=== PATIENT | female | born 1940 | race Caucasian/White ===

== ENCOUNTER 2018-05-11 06:09 | Observation (INO) | payer MEDICARE, OTHER ==
[2018-05-11] MEDS ORDERED: Sodium Chloride 0.9% 500 ML IV ONE (06:17)
--- NOTE | 2018-05-11 06:18 | EDM.PDOC ---
ED HPI GENERAL MEDICAL PROBLEM - General Chief Complaint: Cardiovascular Problem Stated Complaint: [facility] Time Seen by Provider: 05/11/18 06:13 Source of Information: Reports: Patient, EMS History Limitations: Reports: No Limitations - History of Present Illness INITIAL COMMENTS - FREE TEXT/NARRATIVE: Patient has a history of paroxysmal atrial fibrillation and was out at the [facility] last night and woke this morning to go to the restroom and had A FEELING OF A "FREEZING FEELING TO HER CHEST AND UPPER EXTREMITIES. THIS WAS ASSOCIATED WITH THE ONSET OF PALPITATIONS, MILD SHORTNESS OF BREATH AND FEELING GENERALLY WEAK. NO NAUSEA OR VOMITING. NO SYNCOPE NO VOMITING OR DIARRHEA. PATIENT WAS FEELING WELL YESTERDAY. SHE DOES TAKES A RALE TOE DAILY FOR ATRIAL FIBRILLATION. SHE NORMALLY CAN TAKE HER DILTIAZEM AND THIS WILL CORRECT THE RAPID HEART RATE HOWEVER SHE TOOK THAT THIS MORNING AT ABOUT 5:00 AND HER HEART RATE CONTINUED TO BE IRREGULAR AND THEREFORE CALLED 911 AND BROUGHT IN BY AMBULANCE. Chest Pain Score (Numeric/FACES): 5 - Related Data Allergies Allergy/AdvReac Type Severity Reaction Status Date / Time adhesive Allergy Blisters Verified 05/11/18 13:01 MDT candesartan [From Atacand] Allergy Airway Verified 05/11/18 13:01 MDT Tightness cefaclor [From Ceclor] Allergy Hives Verified 05/11/18 13:01 MDT ceftriaxone [From Rocephin] Allergy Hives Verified 05/11/18 13:01 MDT Cephalosporins Allergy Hives Verified 05/11/18 13:01 MDT ciprofloxacin [From Cipro] Allergy Hives Verified 05/11/18 08:35 MDT labetalol Allergy Hives Verified 05/11/18 13:02 MDT levofloxacin [From Levaquin] Allergy Hives Verified 05/11/18 13:01 MDT morphine Allergy Itching Verified 05/11/18 13:01 MDT nitrofurantoin Allergy Joint Pain Verified 05/11/18 13:04 MDT [From Macrodantin] Penicillins Allergy Facial Verified 05/11/18 13:01 MDT Swelling [id number] Reductase Allergy Muscle Verified 05/11/18 13:01 MDT Inhibitor Weakness Sulfa (Sulfonamide Allergy Hives Verified 05/11/18 08:35 MDT Antibiotics) tramadol Allergy Nausea Verified 05/11/18 14:06 MDT amlodipine [From Norvasc] AdvReac Wheezing Verified 05/11/18 14:07 MDT atenolol AdvReac Shortness Verified 05/11/18 14:06 MDT of Breath etodolac AdvReac Nausea Verified 05/11/18 14:06 MDT metoprolol AdvReac Nausea Verified 05/11/18 14:06 MDT propoxyphene [From Darvon] AdvReac Stomach Verified 05/11/18 14:06 MDT Upset Home Meds: Home Meds Cetirizine [ZyrTEC] 10 mg PO DAILY 05/11/18 [History] Citalopram Hydrobromide [Celexa] 10 mg PO BEDTIME 05/11/18 [History] Dicyclomine [Bentyl] 20 mg PO Q6HR PRN 05/11/18 [History] Diltiazem HCl [Diltiazem 24Hr ER] 360 mg PO BEDTIME 05/11/18 [History] Diltiazem [Cardizem CD] 120 mg PO ASDIRECTED PRN 05/11/18 [History] Doxazosin Mesylate 4 mg PO BEDTIME 05/11/18 [History] Furosemide [Lasix] 20 mg PO DAILY 05/11/18 [History] Gabapentin [Neurontin] 100 mg PO TID 05/11/18 [History] Gabapentin [Neurontin] 300 mg PO DAILY 05/11/18 [History] Gabapentin [Neurontin] 900 mg PO BEDTIME 05/11/18 [History] Mirabegron [Myrbetriq] 50 mg PO ACDINNER 05/11/18 [History] Olmesartan Medoxomil [Benicar] 40 mg PO ACLUNCH 05/11/18 [History] Pentosan Polysulfate Sodium [Elmiron] 200 mg PO BEDTIME 05/11/18 [History] Potassium Chloride 20 mg PO BID 05/11/18 [History] Propafenone [Rythmol] 150 mg PO BID 05/11/18 [History] Rivaroxaban [Xarelto] 20 mg PO BEDTIME 05/11/18 [History] Trimethoprim 100 mg PO BID PRN 05/11/18 [History] cloNIDine HCl [Catapres] 0.1 mg PO QID 05/11/18 [History] diphenhydrAMINE [Benadryl] 25 mg PO QPM PRN 05/11/18 [History] ED ROS GENERAL - Review of Systems Review Of Systems: See Below Constitutional: Reports: Weakness. Denies: Fever, Chills, Diaphoresis Cardiovascular: Reports: Chest Pain, Blood Pressure Problem, Lightheadedness, Palpitations. Denies: Dyspnea on Exertion, Orthopnea, PND, Syncope GI/Abdominal: Denies: Abdominal Pain, Diarrhea, Nausea, Vomiting : Denies: Dysuria Musculoskeletal: Reports: Arm Pain Skin: Denies: Rash Neurological: Denies: Confusion, Dizziness, Headache, Syncope ED EXAM, GENERAL - Physical Exam Exam: See Below Exam Limited By: No Limitations General Appearance: Alert, WD/WN, Mild Distress Eye Exam: Bilateral Eye: PERRL Throat/Mouth: Normal Inspection, Normal Oropharynx Head: Atraumatic Neck: Normal Inspection, Supple Respiratory/Chest: Lungs Clear, Normal Breath Sounds, No Accessory Muscle Use Cardiovascular: Normal Peripheral Pulses, Other (Irregular regular rhythm, fast , mild left lower extremity swelling.) GI/Abdominal: Normal Bowel Sounds, Soft, Non-Tender Extremities: Normal Inspection Neurological: Alert, Oriented Psychiatric: Normal Affect, Normal Mood Skin Exam: Warm, Dry EKG INTERPRETATION EKG Date: 05/11/18 Time: 06:28 Rhythm: A-Fib Course - Vital Signs Text/Narrative:: Patient is in rapid atrial fibrillation. History of the same in the past. No precursors other than being out of town. She did take her oral diltiazem prior to coming here this morning about 5:00 this morning. We'll treat her with IV diltiazem, EKG, labs, electrolytes, chest x-ray. Last Recorded V/S: Last Vital Signs Temp 99.4 F 05/11/18 16:00 MDT Pulse 69 05/11/18 16:00 MDT Resp 18 05/11/18 16:00 MDT BP 148/68 H 05/11/18 17:12 MDT Pulse Ox 96 05/11/18 16:00 MDT - Orders/Labs/Meds Orders: Active Orders 24 hr Category Date Time Status Patient Status [ADT] Stat ADT 05/11/18 06:38 Active Diltiazem 125 mg Med 05/11/18 06:45 Active Sodium Chloride 0.9% [Normal Saline] 100 ml IV TITRATE Medication Orders Acetaminophen (Tylenol) 650 mg PO Q4H PRN PRN Reason: Pain (Mild 1-3)/fever Hydrocodone Bitart/Acetaminophen ([place] 325-5 Mg) 1 tab PO Q4H PRN PRN Reason: Pain (moderate 4-6) Last Admin: 05/11/18 10:50 MDT Dose: 1 tab Albuterol/Ipratropium (Duoneb 3.0-0.5 Mg/3 Ml) 3 ml NEB Q4H PRN PRN Reason: Shortness Of Breath/wheezing Bisacodyl (Dulcolax) 5 mg PO DAILY PRN PRN Reason: Constipation Citalopram Hydrobromide (Celexa) 10 mg PO BEDTIME [facility] Clonidine HCl (Catapres) 0.1 mg PO QID [facility] Last Admin: 05/11/18 17:12 MDT Dose: 0.1 mg Admin: 05/11/18 13:21 MDT Dose: 0.1 mg Dicyclomine HCl (Bentyl) 20 mg PO Q6H PRN PRN Reason: Cramping Diltiazem HCl (Cardizem Cd) 360 mg PO BEDTIME [facility] Diphenhydramine HCl (Benadryl) 25 mg PO QPM PRN PRN Reason: Itching Docusate Sodium (Colace) 100 mg PO BID PRN PRN Reason: Constipation Doxazosin Mesylate (Cardura) 4 mg PO BEDTIME [facility] Furosemide (Lasix) 40 mg PO DAILY [facility] Last Admin: 05/11/18 13:21 MDT Dose: 40 mg Gabapentin (Neurontin) 600 mg PO BEDTIME [facility] Gabapentin (Neurontin) 300 mg PO DAILY [facility] Last Admin: 05/11/18 13:21 MDT Dose: 300 mg Gabapentin (Neurontin) 100 mg PO TID [facility] Last Admin: 05/11/18 15:14 MDT Dose: 100 mg Hydralazine HCl (Apresoline) 20 mg IVPUSH Q4H PRN PRN Reason: Hypertension Hydromorphone HCl (Dilaudid) 0.25 mg IVPUSH Q2H PRN PRN Reason: Pain (severe 7-10) Diltiazem HCl 125 mg/ Sodium (Chloride) 125 mls @ 5 mls/hr IV TITRATE [facility]; Protocol Last Admin: 05/11/18 06:44 MDT Dose: 5 mg/hr, 5 mls/hr Promethazine HCl 6.25 mg/ (Sodium Chloride) 50.25 mls @ 100 mls/hr IV Q6H PRN PRN Reason: Nausea/Vomiting Loratadine (Claritin) 10 mg PO DAILY [facility] Lorazepam (Ativan) 0.25 mg IV Q6H PRN PRN Reason: Anxiety Metoprolol Tartrate (Lopressor) 5 mg IVPUSH Q4H PRN PRN Reason: Tachycardia Ondansetron HCl (Zofran) 4 mg IV Q6H PRN PRN Reason: Nausea/Vomiting Mirabegron [ (Myrbetriq] 50 Mg) 0 each PO ACDINNER [facility] Last Admin: 05/11/18 15:09 MDT Dose: Pentosan Polysulfate Sodium [Elmiron] 200 Mg 0 each PO BEDTIME [facility] Polyethylene Glycol (Miralax) 17 gm PO DAILY PRN PRN Reason: Constipation Potassium Chloride (Klor-Con M20) 20 meq PO BID [facility] Last Admin: 05/11/18 13:30 MDT Dose: 20 meq Propafenone HCl (Rythmol) 150 mg PO BID [facility] Rivaroxaban (Xarelto) 20 mg PO WITHDINNER [facility] Last Admin: 05/11/18 17:12 MDT Dose: 20 mg Senna/Docusate Sodium (Senna Plus) 1 tab PO BID PRN PRN Reason: Constipation Zolpidem Tartrate (Ambien) 5 mg PO BEDTIME PRN PRN Reason: Sleep Labs: Laboratory Tests 05/11/18 05/11/18 05/11/18 Range/Units 06:20 MDT 06:20 MDT 06:20 MDT WBC 4.50 (3.98-10.04) K/mm3 RBC 4.21 (3.98-5.22) M/mm3 Hgb 12.7 (11.2-15.7) gm/L Hct 40.0 (34.1-44.9) % MCV 95.0 H (79.4-94.8) fl MCH 30.2 (25.6-32.2) pg MCHC 31.8 L (32.2-35.5) g/dl RDW Std Deviation 48.7 H (36.4-46.3) fL Plt Count 229 (182-369) K/mm3 MPV 10.3 (9.4-12.3) fl Neut % (Auto) 41.8 (34.0-71.1) % Lymph % (Auto) 42.2 (19.3-51.7) % [place] % (Auto) 10.7 (4.7-12.5) % Eos % (Auto) 4.4 (0.7-5.8) Baso % (Auto) 0.9 (0.1-1.2) % Neut # (Auto) 1.88 (1.56-6.13) K/mm3 Lymph # (Auto) 1.90 (1.18-3.74) K/mm3 [place] # (Auto) 0.48 H (0.24-0.36) K/mm3 Eos # (Auto) 0.20 (0.04-0.36) K/mm3 Baso # (Auto) 0.04 (0.01-0.08) K/mm3 PT 12.4 H (9.5-12.1) SECONDS INR 1.14 Sodium 143 (136-145) mEq/L Potassium 3.4 L (3.5-5.1) mEq/L Chloride 104 (98-107) mEq/L Carbon Dioxide 27 (21-32) mEq/L Anion Gap 15.4 H (5-15) BUN 16 (7-18) mg/dL Creatinine 0.9 (0.55-1.02) mg/dL Est Cr Clr Drug Dosing 49.78 mL/min Estimated GFR (MDRD) > 60 (>60) mL/min BUN/Creatinine Ratio 17.8 (14-18) Glucose 106 (83-115) mg/dL Calcium 9.0 (8.5-10.1) mg/dL Total Bilirubin 0.3 (0.2-1.0) mg/dL AST 18 (15-37) U/L ALT 29 (14-59) U/L Alkaline Phosphatase 81 (46-116) U/L CK-MB (CK-2) (0-3.6) ng/ml Troponin I < 0.017 (0.00-0.056) ng/mL NT-Pro-B Natriuret Pep (0-450) pg/mL Total Protein 7.5 (6.4-8.2) g/dl Albumin 4.2 (3.4-5.0) g/dl Globulin 3.3 gm/dL Albumin/Globulin Ratio 1.3 (1-2) Free T4 (0.76-1.46) ng/dL TSH 3rd Generation (0.358-3.74) uIU/mL 05/11/18 05/11/18 05/11/18 Range/Units 06:20 MDT 06:20 MDT 06:20 MDT WBC (3.98-10.04) K/mm3 RBC (3.98-5.22) M/mm3 Hgb (11.2-15.7) gm/L Hct (34.1-44.9) % MCV (79.4-94.8) fl MCH (25.6-32.2) pg MCHC (32.2-35.5) g/dl RDW Std Deviation (36.4-46.3) fL Plt Count (182-369) K/mm3 MPV (9.4-12.3) fl Neut % (Auto) (34.0-71.1) % Lymph % (Auto) (19.3-51.7) % [place] % (Auto) (4.7-12.5) % Eos % (Auto) (0.7-5.8) Baso % (Auto) (0.1-1.2) % Neut # (Auto) (1.56-6.13) K/mm3 Lymph # (Auto) (1.18-3.74) K/mm3 [place] # (Auto) (0.24-0.36) K/mm3 Eos # (Auto) (0.04-0.36) K/mm3 Baso # (Auto) (0.01-0.08) K/mm3 PT (9.5-12.1) SECONDS INR Sodium (136-145) mEq/L Potassium (3.5-5.1) mEq/L Chloride (98-107) mEq/L Carbon Dioxide (21-32) mEq/L Anion Gap (5-15) BUN (7-18) mg/dL Creatinine (0.55-1.02) mg/dL Est Cr Clr Drug Dosing mL/min Estimated GFR (MDRD) (>60) mL/min BUN/Creatinine Ratio (14-18) Glucose (83-115) mg/dL Calcium (8.5-10.1) mg/dL Total Bilirubin (0.2-1.0) mg/dL AST (15-37) U/L ALT (14-59) U/L Alkaline Phosphatase (46-116) U/L CK-MB (CK-2) 1.2 (0-3.6) ng/ml Troponin I < 0.017 (0.00-0.056) ng/mL NT-Pro-B Natriuret Pep 156 (0-450) pg/mL Total Protein (6.4-8.2) g/dl Albumin (3.4-5.0) g/dl Globulin gm/dL Albumin/Globulin Ratio (1-2) Free T4 0.91 (0.76-1.46) ng/dL TSH 3rd Generation 1.689 1.688 (0.358-3.74) uIU/mL Meds: Medications Generic Name Dose Route Start Last Admin Trade Name Freq PRN Reason Stop Dose Admin Acetaminophen 650 mg 05/11/18 07:40 MDT Tylenol PO Q4H PRN Pain (Mild 1-3)/fever Hydrocodone Bitart/Acetaminophen 1 tab 05/11/18 07:40 MDT 05/11/18 10:50 MDT [place] 325-5 Mg PO 1 tab Q4H PRN Administration Pain (moderate 4-6) Albuterol/Ipratropium 3 ml 05/11/18 07:40 MDT Duoneb 3.0-0.5 Mg/3 Ml NEB Q4H PRN Shortness Of Breath/wheezing Bisacodyl 5 mg 05/11/18 07:40 MDT Dulcolax PO DAILY PRN Constipation Citalopram Hydrobromide 10 mg 05/11/18 21:00 MDT Celexa PO BEDTIME [facility] Clonidine HCl 0.1 mg 05/11/18 13:00 MDT 05/11/18 17:12 MDT Catapres PO 0.1 mg QID [facility] Administration Dicyclomine HCl 20 mg 05/11/18 13:22 MDT Bentyl PO Q6H PRN Cramping Diltiazem HCl 360 mg 05/11/18 21:00 MDT Cardizem Cd PO BEDTIME [facility] Diphenhydramine HCl 25 mg 05/11/18 13:22 MDT Benadryl PO QPM PRN Itching Docusate Sodium 100 mg 05/11/18 07:40 MDT Colace PO BID PRN Constipation Doxazosin Mesylate 4 mg 05/11/18 21:00 MDT Cardura PO BEDTIME [facility] Furosemide 40 mg 05/11/18 12:15 MDT 05/11/18 13:21 MDT Lasix PO 40 mg DAILY [facility] Administration Gabapentin 600 mg 05/11/18 21:00 MDT Neurontin PO BEDTIME [facility] Gabapentin 300 mg 05/11/18 12:15 MDT 05/11/18 13:21 MDT Neurontin PO 300 mg DAILY [facility] Administration Gabapentin 100 mg 05/11/18 15:00 MDT 05/11/18 15:14 MDT Neurontin PO 100 mg TID [facility] Administration Hydralazine HCl 20 mg 05/11/18 07:40 MDT Apresoline IVPUSH Q4H PRN Hypertension Hydromorphone HCl 0.25 mg 05/11/18 07:40 MDT Dilaudid IVPUSH Q2H PRN Pain (severe 7-10) Diltiazem HCl 125 mg/ Sodium 125 mls @ 5 mls/hr 05/11/18 06:45 MDT 05/11/18 06:44 MDT Chloride IV 5 mg/hr TITRATE [facility] 5 mls/hr Administration Protocol 5 MG/HR Promethazine HCl 6.25 mg/ 50.25 mls @ 100 mls/hr 05/11/18 07:40 MDT Sodium Chloride IV Q6H PRN Nausea/Vomiting Loratadine 10 mg 05/12/18 09:00 MDT Claritin PO DAILY [facility] Lorazepam 0.25 mg 05/11/18 07:40 MDT Ativan IV Q6H PRN Anxiety Metoprolol Tartrate 5 mg 05/11/18 07:40 MDT Lopressor IVPUSH Q4H PRN Tachycardia Ondansetron HCl 4 mg 05/11/18 07:40 MDT Zofran IV Q6H PRN Nausea/Vomiting Mirabegron [ 0 each 05/11/18 16:00 MDT 05/11/18 15:09 MDT Myrbetriq] 50 Mg PO Not Given ACDINNER [facility] Pentosan Polysulfate 0 each 09/04/18 21:00 MDT Sodium [Elmiron] PO 200 Mg BEDTIME [facility] Polyethylene Glycol 17 gm 05/11/18 07:40 MDT Miralax PO DAILY PRN Constipation Potassium Chloride 20 meq 05/11/18 13:30 MDT 05/11/18 13:30 MDT Klor-Con M20 PO 20 meq BID [facility] Administration Propafenone HCl 150 mg 05/11/18 21:00 MDT Rythmol PO BID [facility] Rivaroxaban 20 mg 05/11/18 17:00 MDT 05/11/18 17:12 MDT Xarelto PO 20 mg WITHDINNER [facility] Administration Senna/Docusate Sodium 1 tab 05/11/18 07:40 MDT Senna Plus PO BID PRN Constipation Zolpidem Tartrate 5 mg 05/11/18 21:00 MDT Ambien PO BEDTIME PRN Sleep Discontinued Medications Generic Name Dose Route Start Last Admin Trade Name Freq PRN Reason Stop Dose Admin Diltiazem HCl 20 mg 05/11/18 06:33 MDT 05/11/18 06:44 MDT Cardizem IVPUSH 05/11/18 06:34 MDT 20 mg NOW ONE Administration Sodium Chloride 500 mls @ 500 mls/hr 05/11/18 06:17 MDT 05/11/18 06:44 MDT Normal Saline IV 05/11/18 07:16 MDT 500 mls/hr .BOLUS ONE Administration Losartan Potassium 40 mg 05/11/18 12:30 MDT 05/11/18 13:31 MDT Cozaar PO Not Given ACLUNCH [facility] Losartan Potassium 100 mg 05/11/18 12:58 MDT Cozaar PO ACLUNCH [facility] Pneumococcal Polyvalent Vaccine 0.5 ml 05/11/18 08:45 MDT Pneumovax 23 IM 05/11/18 08:46 MDT .ONCE ONE Potassium Chloride 1 dose 05/11/18 07:45 MDT Pharmacy To Dose - Potassium Replacement .XX ASDIRECTED [facility] Potassium Chloride 40 meq 05/11/18 09:00 MDT 05/11/18 13:31 MDT Klor-Con M20 PO 05/11/18 09:01 MDT Not Given ONETIME ONE Departure - Departure Time of Disposition: 06:40 Disposition: DC/Tfer to [facility] Condition: Good Clinical Impression: Atrial fibrillation with rapid ventricular response - My Orders Last 24 Hours: My Active Orders 05/11/18 06:38 Patient Status [ADT] Stat 05/11/18 06:45 Diltiazem 125 mg Sodium Chloride 0.9% [Normal Saline] 100 ml IV TITRATE - Assessment/Plan Last 24 Hours: My Active Orders 05/11/18 06:38 Patient Status [ADT] Stat 05/11/18 06:45 Diltiazem 125 mg Sodium Chloride 0.9% [Normal Saline] 100 ml IV TITRATE
[2018-05-11] MEDS ORDERED: Diltiazem 50 MG/10 ML SDV IVPUSH ONE (06:33)
[2018-05-11] MEDS ORDERED: Diltiazem 125 MG in Sodium Chloride 0.9% 100 ML IV SCH (06:45)
[2018-05-11] MEDS ORDERED: Bisacodyl 5 MG Tab PO PRN (07:40)
[2018-05-11] MEDS ORDERED: Albuterol/Ipratropium 3.0-0.5 MG/3 ML Neb Soln NEB PRN (07:40)
[2018-05-11] MEDS ORDERED: Acetaminophen/HYDROcodone 325-5 MG Tab PO PRN (07:40)
[2018-05-11] MEDS ORDERED: Polyethylene Glycol 3350 Powder 17 GM Packet PO PRN (07:40)
[2018-05-11] MEDS ORDERED: Docusate Sodium 100 MG Cap PO PRN (07:40)
[2018-05-11] MEDS ORDERED: Ondansetron 4 MG/2 ML SDV IV PRN (07:40)
[2018-05-11] MEDS ORDERED: Metoprolol Tartrate 5 MG/5 ML SDV IVPUSH PRN (07:40)
[2018-05-11] MEDS ORDERED: Promethazine 6.25 MG in Sodium Chloride 0.9% 50 ML IV PRN (07:40)
[2018-05-11] MEDS ORDERED: HYDROmorphone 0.5 MG/0.5 ML Syringe IVPUSH PRN (07:40)
[2018-05-11] MEDS ORDERED: hydrALAZINE 20 MG/ML SDV IVPUSH PRN (07:40)
[2018-05-11] MEDS ORDERED: LORazepam 2 MG/ML SDV IV PRN (07:40)
--- NOTE | 2018-05-11 07:48 | PCM.HP ---
H&P History of Present Illness - General Date of Service: 05/11/18 Admit Problem/Dx: Admission Diagnosis/Problem Admission Diagnosis/Problem Chest pain syndrome Source of Information: Patient, Provider, RN Notes Reviewed History Limitations: Reports: No Limitations - History of Present Illness Initial Comments - Free Text/Narative: This is a 78 yo elderly white female with past medical hx/o PAF on Xarelto, OAB , HTN, HLD, Hx/o SSS S/p Pacemaker Placement, Diverticulosis, IBS, Migraines and Peripheral Neuropathy who comes in with complaints of heart palpitation associated with chest pain, shortness of breath, lightheadedness, and generalized weakness that started this morning. She describes having a " freezing feeling" to her chest and upper extremities. Her last known well was yesterday. She was out at [place] attending a Musical Show. Patient having near syncope or syncopal episode. She denies any recent sickness or some form of systemic infection. Patient carries a hx/o PAF on Xarelto and she takes Cardizem 360 mg po daily for rate control medication. She did however take her medication this AM but her heart palpitation did not improve and so she called for help and was brought in to ED for further evaluation. In ED, she was observed with a heart rate in the 120s-130s. Her initial work up in ED shows a fairly unremarkable CBC. Her coagulation studies are PT of 12.4 and INR of 1.14. Her Chemistry is significant for K of 3.4 and AG of 15.4. Her initial troponin is < 0.017. Her CXR shows no acute abnormal findings pacemaker/a1cd noted on the anterior thorax. Patient received initial treatment in ED before she was sent to the unit for further management. She is being admitted for A-fib with RVR. She full code. Chest Pain Score (Numeric/FACES): 5 - Related Data Allergies/Adverse Reactions: Allergies Allergy/AdvReac Type Severity Reaction Status Date / Time ciprofloxacin [From Cipro] Allergy Hives Verified 05/11/18 06:23 Penicillins Allergy Hives Verified 05/11/18 06:23 Sulfa (Sulfonamide Allergy Hives Verified 05/11/18 06:23 Antibiotics) Home Medications: Home Meds Diltiazem HCl [Diltiazem 24Hr ER] 360 mg PO DAILY 05/11/18 [History] Doxazosin Mesylate 4 mg PO DAILY 05/11/18 [History] Furosemide [Lasix] 40 mg PO DAILY 05/11/18 [History] Gabapentin [Neurontin] 100 mg PO TID 05/11/18 [History] Gabapentin [Neurontin] 300 mg PO DAILY 05/11/18 [History] Gabapentin [Neurontin] 600 mg PO BEDTIME 05/11/18 [History] Mirabegron [Myrbetriq] 50 mg PO DAILY 05/11/18 [History] Olmesartan Medoxomil [Benicar] 40 mg PO DAILY 05/11/18 [History] Pentosan Polysulfate Sodium [Elmiron] 200 mg PO DAILY 05/11/18 [History] Rivaroxaban [Xarelto] 40 mg PO DAILY 05/11/18 [History] cloNIDine HCl [Catapres] 0.1 mg PO QID 05/11/18 [History] Past Medical History Cardiovascular History: Reports: Afib, High Cholesterol, Hypertension, Pacemaker Gastrointestinal History: Reports: Diverticulosis, Irritable Bowel Syndrome Genitourinary History: Reports: Other (See Below) Other Genitourinary History: OVERACTIVE BLADDER Neurological History: Reports: Migraines - Past Surgical History GI Surgical History: Reports: Other (See Below) Other GI Surgeries/Procedures: COLECTOMY Musculoskeletal Surgical History: Reports: Knee Replacement Social & Family History - Family History Family Medical History: Noncontributory - Tobacco Use Smoking Status *Q: Never Smoker - Recreational Drug Use Recreational Drug Use: No H&P Review of Systems - Review of Systems: Review Of Systems: ROS reveals no pertinent complaints other than HPI. Exam - Exam Exam: See Below - Vital Signs Vital Signs: Last Vital Signs Temp 36.8 C 05/11/18 06:27 Pulse 107 H 05/11/18 06:44 Resp 13 05/11/18 06:27 BP 132/85 05/11/18 06:44 Pulse Ox 92 L 05/11/18 06:27 Weight: 77.111 kg - Exam General: Alert, Oriented, Cooperative. No: Mild Distress HEENT: Conjunctiva Clear, EACs Clear, EOMI, Hearing Intact, Mucosa Moist & Plover , Nares Patent, Normal Nasal Septum, Posterior Pharynx Clear, Pupils Equal, Pupils Reactive Neck: Supple, Trachea Midline, +2 Carotid Pulse wo Bruit, Full Range of Motion Lungs: Clear to Auscultation, Normal Respiratory Effort Cardiovascular: Irregular Rhythm, Other GI/Abdominal Exam: Normal Bowel Sounds, Soft, Non-Tender, No Organomegaly, No Distention, No Abnormal Bruit, No Mass (Female) Exam: Deferred Rectal (Female) Exam: Deferred Back Exam: Normal Inspection, Decreased Range of Motion Extremities: Normal Inspection, Normal Range of Motion, Non-Tender, No Pedal Edema, Normal Capillary Refill Peripheral Pulses: 3+: Posterior Tibial (L), Posterior Tibial (R), Dorsalis Pedis (L), Dorsalis Pedis (R) Skin: Warm, Dry, Intact Neuro Extensive - Mental Status: Oriented x3, Normal Cognition, Memory Intact Neuro Extensive - Motor, Sensory, Reflexes: CN II-XII Intact, Normal Gait Psychiatric: Alert, Normal Affect, Normal Mood - Patient Data Lab Results Last 24 hrs: Laboratory Results - last 24 hr 05/11/18 05/11/18 05/11/18 Range/Units 06:20 06:20 06:20 WBC 4.50 (3.98-10.04) K/mm3 RBC 4.21 (3.98-5.22) M/mm3 Hgb 12.7 (11.2-15.7) gm/L Hct 40.0 (34.1-44.9) % MCV 95.0 H (79.4-94.8) fl MCH 30.2 (25.6-32.2) pg MCHC 31.8 L (32.2-35.5) g/dl RDW Std Deviation 48.7 H (36.4-46.3) fL Plt Count 229 (182-369) K/mm3 MPV 10.3 (9.4-12.3) fl Neut % (Auto) 41.8 (34.0-71.1) % Lymph % (Auto) 42.2 (19.3-51.7) % Glenn % (Auto) 10.7 (4.7-12.5) % Eos % (Auto) 4.4 (0.7-5.8) Baso % (Auto) 0.9 (0.1-1.2) % Neut # (Auto) 1.88 (1.56-6.13) K/mm3 Lymph # (Auto) 1.90 (1.18-3.74) K/mm3 Glenn # (Auto) 0.48 H (0.24-0.36) K/mm3 Eos # (Auto) 0.20 (0.04-0.36) K/mm3 Baso # (Auto) 0.04 (0.01-0.08) K/mm3 PT 12.4 H (9.5-12.1) SECONDS INR 1.14 Sodium 143 (136-145) mEq/L Potassium 3.4 L (3.5-5.1) mEq/L Chloride 104 (98-107) mEq/L Carbon Dioxide 27 (21-32) mEq/L Anion Gap 15.4 H (5-15) BUN 16 (7-18) mg/dL Creatinine 0.9 (0.55-1.02) mg/dL Est Cr Clr Drug Dosing 49.78 mL/min Estimated GFR (MDRD) > 60 (>60) mL/min BUN/Creatinine Ratio 17.8 (14-18) Glucose 106 (83-115) mg/dL Calcium 9.0 (8.5-10.1) mg/dL Total Bilirubin 0.3 (0.2-1.0) mg/dL AST 18 (15-37) U/L ALT 29 (14-59) U/L Alkaline Phosphatase 81 (46-116) U/L Troponin I < 0.017 (0.00-0.056) ng/mL NT-Pro-B Natriuret Pep (0-450) pg/mL Total Protein 7.5 (6.4-8.2) g/dl Albumin 4.2 (3.4-5.0) g/dl Globulin 3.3 gm/dL Albumin/Globulin Ratio 1.3 (1-2) 05/11/18 Range/Units 06:20 WBC (3.98-10.04) K/mm3 RBC (3.98-5.22) M/mm3 Hgb (11.2-15.7) gm/L Hct (34.1-44.9) % MCV (79.4-94.8) fl MCH (25.6-32.2) pg MCHC (32.2-35.5) g/dl RDW Std Deviation (36.4-46.3) fL Plt Count (182-369) K/mm3 MPV (9.4-12.3) fl Neut % (Auto) (34.0-71.1) % Lymph % (Auto) (19.3-51.7) % Glenn % (Auto) (4.7-12.5) % Eos % (Auto) (0.7-5.8) Baso % (Auto) (0.1-1.2) % Neut # (Auto) (1.56-6.13) K/mm3 Lymph # (Auto) (1.18-3.74) K/mm3 Glenn # (Auto) (0.24-0.36) K/mm3 Eos # (Auto) (0.04-0.36) K/mm3 Baso # (Auto) (0.01-0.08) K/mm3 PT (9.5-12.1) SECONDS INR Sodium (136-145) mEq/L Potassium (3.5-5.1) mEq/L Chloride (98-107) mEq/L Carbon Dioxide (21-32) mEq/L Anion Gap (5-15) BUN (7-18) mg/dL Creatinine (0.55-1.02) mg/dL Est Cr Clr Drug Dosing mL/min Estimated GFR (MDRD) (>60) mL/min BUN/Creatinine Ratio (14-18) Glucose (83-115) mg/dL Calcium (8.5-10.1) mg/dL Total Bilirubin (0.2-1.0) mg/dL AST (15-37) U/L ALT (14-59) U/L Alkaline Phosphatase (46-116) U/L Troponin I (0.00-0.056) ng/mL NT-Pro-B Natriuret Pep 156 (0-450) pg/mL Total Protein (6.4-8.2) g/dl Albumin (3.4-5.0) g/dl Globulin gm/dL Albumin/Globulin Ratio (1-2) Result Diagrams: 05/11/18 06:20 05/11/18 06:20 Problem List Initiated/Reviewed/Updated: Yes Orders Last 24hrs: Active Orders 24 hr Category Date Time Status Patient Status [ADT] Stat ADT 05/11/18 06:38 Active Cardiac Monitoring [RC] CONTINUOUS Care 05/11/18 07:42 Ordered Height and Weight [RC] DAILY Care 05/11/18 07:40 Ordered Intake and Output [RC] QSHIFT Care 05/11/18 07:42 Ordered Oxygen Therapy [RC] PRN Care 05/11/18 07:41 Ordered Pulse Oximetry [RC] PRN Care 05/11/18 07:42 Ordered RT Aerosol Therapy [RC] ASDIRECTED Care 05/11/18 07:44 Ordered Up With Assistance [RC] ASDIRECTED Care 05/11/18 07:40 Ordered Up ad [place] [RC] ASDIRECTED Care 05/11/18 07:40 Ordered VTE/DVT Education [RC] PER UNIT ROUTINE Care 05/11/18 07:41 Ordered Vital Signs [RC] Q4H Care 05/11/18 07:41 Ordered Consult to Case Management [CONS] Routine Cons 05/11/18 07:40 Ordered Consult to [employer] [CONS] Routine Cons 05/11/18 07:40 Ordered Heart Healthy Diet [DIET] Diet 05/11/18 Breakfast Ordered Chest 1V Frontal [CR] Stat Exams 05/11/18 06:17 Taken Echo Comp wo Cont [US] Routine Exams 05/11/18 07:45 Ordered BASIC METABOLIC PANEL,BMP [CHEM] AM Lab 05/12/18 05:11 Ordered BASIC METABOLIC PANEL,BMP [CHEM] AM Lab 05/13/18 05:11 Ordered CBC WITH AUTO DIFF [HEME] AM Lab 05/12/18 05:11 Ordered CKMB [CHEM] Q6H Lab 05/11/18 07:40 Ordered CKMB [CHEM] Q6H Lab 05/11/18 13:40 Ordered CKMB [CHEM] Q6H Lab 05/11/18 19:40 Ordered MAGNESIUM [CHEM] AM Lab 05/12/18 05:11 Ordered MAGNESIUM [CHEM] AM Lab 05/13/18 05:11 Ordered T4 FREE [CHEM] Routine Lab 05/11/18 07:46 Ordered TROPONIN I [CHEM] Q6H Lab 05/11/18 07:40 Ordered TROPONIN I [CHEM] Q6H Lab 05/11/18 13:40 Ordered TROPONIN I [CHEM] Q6H Lab 05/11/18 19:40 Ordered TSH [CHEM] Routine Lab 05/11/18 07:46 Ordered TSH [CHEM] Stat Lab 05/11/18 06:20 Received Acetaminophen [Tylenol] Med 05/11/18 07:40 Ordered 650 mg PO Q4H PRN Acetaminophen/HYDROcodone [[place] 325-5 MG] Med 05/11/18 07:40 Ordered 1 tab PO Q4H PRN Albuterol/Ipratropium [DuoNeb 3.0-0.5 MG/3 ML] Med 05/11/18 07:40 Ordered 3 ml NEB Q4H PRN Bisacodyl [Dulcolax] Med 05/11/18 07:40 Ordered 5 mg PO DAILY PRN Diltiazem 125 mg Med 05/11/18 06:45 Active Sodium Chloride 0.9% [Normal Saline] 100 ml IV TITRATE Diltiazem HCl [Diltiazem 24Hr ER] Med 05/11/18 09:00 Ordered 360 mg PO DAILY Docusate Sodium [Colace] Med 05/11/18 07:40 Ordered 100 mg PO BID PRN Docusate Sodium/Sennosides [Senna Plus] Med 05/11/18 07:40 Ordered 1 tab PO BID PRN Doxazosin Mesylate Med 05/11/18 09:00 Ordered 4 mg PO DAILY Furosemide [Lasix] Med 05/11/18 09:00 Ordered 40 mg PO DAILY Gabapentin [Neurontin] Med 05/11/18 09:00 Ordered 100 mg PO TID Gabapentin [Neurontin] Med 05/11/18 09:00 Ordered 300 mg PO DAILY Gabapentin [Neurontin] Med 05/11/18 21:00 Ordered 600 mg PO BEDTIME HYDROmorphone [Dilaudid] Med 05/11/18 07:40 Ordered 0.25 mg IVPUSH Q2H PRN LORazepam [Ativan] Med 05/11/18 07:40 Ordered 0.25 mg IV Q6H PRN Metoprolol Tartrate [Lopressor] Med 05/11/18 07:40 Ordered 5 mg IVPUSH Q4H PRN Mirabegron [Myrbetriq] Med 05/11/18 09:00 Ordered 50 mg PO DAILY Olmesartan Medoxomil [Benicar] Med 05/11/18 09:00 Ordered 40 mg PO DAILY Ondansetron [Zofran] Med 05/11/18 07:40 Ordered 4 mg IV Q6H PRN Pentosan Polysulfate Sodium [Elmiron] Med 05/11/18 09:00 Ordered 200 mg PO DAILY Polyethylene Glycol 3350 [MiraLAX] Med 05/11/18 07:40 Ordered 17 gm PO DAILY PRN Potassium Rep Pharmacy to Dose [Pharmacy to Dose - Med 05/11/18 07:45 Ordered Potassium Replacement] 1 dose .XX ASDIRECTED Promethazine [Phenergan] 6.25 mg Med 05/11/18 07:40 Ordered Sodium Chloride 0.9% [Normal Saline] 50 ml IV Q6H Rivaroxaban [Xarelto] Med 05/11/18 09:00 Ordered 40 mg PO DAILY Zolpidem [Ambien] Med 05/11/18 07:40 Ordered 5 mg PO BEDTIME PRN cloNIDine [Catapres] Med 05/11/18 09:00 Ordered 0.1 mg PO QID hydrALAZINE [Apresoline] Med 05/11/18 07:40 Ordered 20 mg IVPUSH Q4H PRN Resuscitation Status Routine Resus Stat 05/11/18 07:40 Ordered Medication Orders Acetaminophen (Tylenol) 650 mg PO Q4H PRN PRN Reason: Pain (Mild 1-3)/fever Hydrocodone Bitart/Acetaminophen ([place] 325-5 Mg) 1 tab PO Q4H PRN PRN Reason: Pain (moderate 4-6) Albuterol/Ipratropium (Duoneb 3.0-0.5 Mg/3 Ml) 3 ml NEB Q4H PRN PRN Reason: Shortness Of Breath/wheezing Bisacodyl (Dulcolax) 5 mg PO DAILY PRN PRN Reason: Constipation Clonidine HCl (Catapres) 0.1 mg PO QID [facility] Docusate Sodium (Colace) 100 mg PO BID PRN PRN Reason: Constipation Furosemide (Lasix) 40 mg PO DAILY [facility] Gabapentin (Neurontin) 600 mg PO BEDTIME [facility] Gabapentin (Neurontin) 300 mg PO DAILY [facility] Gabapentin (Neurontin) 100 mg PO TID [facility] Hydralazine HCl (Apresoline) 20 mg IVPUSH Q4H PRN PRN Reason: Hypertension Hydromorphone HCl (Dilaudid) 0.25 mg IVPUSH Q2H PRN PRN Reason: Pain (severe 7-10) Diltiazem HCl 125 mg/ Sodium (Chloride) 125 mls @ 5 mls/hr IV TITRATE [facility]; Protocol Last Admin: 05/11/18 06:44 Dose: 5 mg/hr, 5 mls/hr Lorazepam (Ativan) 0.25 mg IV Q6H PRN PRN Reason: Anxiety Non-Formulary Medication (Diltiazem Hcl [Diltiazem 24hr Er]) 360 mg PO DAILY [facility] Non-Formulary Medication (Doxazosin Mesylate) 4 mg PO DAILY [facility] Non-Formulary Medication (Mirabegron [Myrbetriq]) 50 mg PO DAILY [facility] Non-Formulary Medication (Olmesartan Medoxomil [Benicar]) 40 mg PO DAILY [facility] Non-Formulary Medication (Pentosan Polysulfate Sodium [Elmiron]) 200 mg PO DAILY [facility] Non-Formulary Medication (Rivaroxaban [Xarelto]) 40 mg PO DAILY [facility] Senna/Docusate Sodium (Senna Plus) 1 tab PO BID PRN PRN Reason: Constipation Assessment/Plan Comment:: Assessment/Plan: Acute: A-Fib with RVR with HR 120s - Carries a hx/o PAF on Xarelto - She does not drink much coffee but drinks considerable amount of caffeinated tea - Has had 5-6 episodes in the past; her most recent was in September of this year - CXR no obvious infiltrate - No signs of infections - She did not respond to her morning Cardizem 360 mg po this AM - Troponin x 1 negative - Received initial treatment in ED; currently on Cardizem drip - Thyroid Panel and 2D echo - Xarelto for stroke PPx Chest Pain - Likely related to A-fib - So far initial troponin is normal - Serial CE Q6 X3 Mild Hypokalemia - K 3.4 - Likely 2/2 inadequate intake - Replete and monitor Chronic: HTN HLD Hx/o SSS S/p Pacemaker Placement Diverticulosis IBS OAB Migraines Peripheral Neuropathy Plan; Admit to ICU Resume Home Meds Routine AM Labs Serial CE Q6 x 3 Lipid Panel in AM PT/OT for generalized weakness SW/CM for d/c planning Additional orders above Code status: 1
[2018-05-11] MEDS ORDERED: Pneumococcal Polyvalent-23 Vaccine 0.5 ML SDV IM ONE (08:45)
[2018-05-11] MEDS ORDERED: Potassium Chloride 20 MEQ Tab.ER PO ONE (09:00)
[2018-05-11] MEDS: Acetaminophen 325 MG Tab PO PRN (09:57)
--- NOTE | 2018-05-11 10:10 | CR ---
Chest: Portable view of the chest was obtained. Comparison: No previous chest x-ray. Heart is slightly enlarged. Tortuous thoracic aorta is seen. Pacemaker is noted. Lungs are clear without acute parenchymal change. Bony structures are grossly intact. Impression: 1. Slight cardiomegaly with pacemaker. Nothing acute is seen on portable chest x-ray. Diagnostic code #2
--- NOTE | 2018-05-11 11:29 | PCM.SN ---
- Free Text/Narrative Note: In to see Zainab. She is walking around the room. We discussed her plan of care and history. Her prior medical chart was reviewed and per notes she has a dual- chamber pacemaker, which was implanted by Dr. Barrios in 2013 for sick sinus syndrome. Her HR is now 65 with no ectopy noted. No pacer spikes on monitor. She denies any CP, SOB, palpations, Nausea, or other symptoms. She reports she has had episodes in the past in which her HR has elevated and she has a PRN order for cardizem in the event this happens. She states that while she was in [place] she did not have this dose. She is off the cardizem drip and back on her home meds. She has no complaints. Echo was obtained today. Lexiscan stress test will be performed tomorrow. She has a rather extensive allergy list and multiple home medications. Will continued most of her home medications and monitor. Otherwise no nursing concerns. Vitals and labs have been stable. TSH and troponin WNL.
[2018-05-11] MEDS ORDERED: Losartan 100 MG Tab PO SCH ×2 (12:30→12:58)
[2018-05-11] MEDS: Gabapentin 300 MG Cap PO SCH (13:21)
[2018-05-11] MEDS: Furosemide 40 MG Tab PO SCH (13:21)
[2018-05-11] MEDS: cloNIDine 0.1 MG Tab PO SCH ×3 (13:21→20:45)
[2018-05-11] MEDS ORDERED: Dicyclomine 10 MG Cap PO PRN (13:22)
[2018-05-11] MEDS ORDERED: diphenhydrAMINE 25 MG Cap PO PRN (13:22)
[2018-05-11] MEDS: Potassium Chloride 20 MEQ Tab.ER PO SCH ×2 (13:30→20:48)
[2018-05-11] MEDS: Gabapentin 100 MG Cap PO SCH ×2 (15:14→20:48)
[2018-05-11] MEDS ORDERED: Mirabegron [Myrbetriq] 50 MG PO SCH (16:00)
[2018-05-11] MEDS ORDERED: Rivaroxaban 10 MG Tab PO SCH (17:00)
[2018-05-11] MEDS ORDERED: Doxazosin 4 MG Tab PO SCH (21:00)
[2018-05-11] MEDS ORDERED: Zolpidem 5 MG Tab PO PRN (21:00)
[2018-05-11] MEDS ORDERED: Citalopram 10 MG Tab PO SCH (21:00)
[2018-05-11] MEDS ORDERED: Diltiazem 180 MG Cap.CD PO SCH (21:00)
[2018-05-11] MEDS ORDERED: PENTOSAN POLYSULFATE SODIUM 200 MG PO SCH (21:00)
[2018-05-11] MEDS ORDERED: Gabapentin 600 MG Tab PO SCH (21:00)
--- NOTE | 2018-05-12 07:29 | PCM.PRNOTE ---
- Free Text/Narrative Note: Date of service: 05/12/18 Procedure: Regadenoson (Lexiscan) stress test Ordering provider: Dr. Karen Wiggins/Ryan Unger PA-C Indication: A-fib with RVR, chest pain Baseline EKG: Atrial sensed and ventricular paced rhythm at 60 bpm The patient received Regadenoson (Lexiscan) 0.4 mg IV and a nuclear agent using standard protocol. The patient was seated for the procedure. Lexiscan test: Heart rate: 82 bpm; Blood pressure: 160/75 mm Hg; Oxygenation: 99 %. EKG changes of ischemia during stress test or in recovery: None Arrhythmias: None Adverse effects of Lexiscan: Lightheadedness and chest pressure spontaneously and rapidly resolving by completion of test. Test terminated due to: end of protocol Impression: 1. Negative Lexiscan stress test ECG for ischemia. 2. Nuclear images pending and will be reported separately per Radiologist.
[2018-05-12] MEDS ORDERED: Loratadine 10 MG Tab PO SCH (09:00)
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
[2018-05-12] MEDS: Gabapentin 300 MG Cap PO SCH (12:48)
[2018-05-12] MEDS: Furosemide 40 MG Tab PO SCH (12:48)
[2018-05-12] MEDS: Potassium Chloride 20 MEQ Tab.ER PO SCH (12:49)
[2018-05-12] MEDS: cloNIDine 0.1 MG Tab PO SCH ×2 (12:49→12:50)
[2018-05-12] MEDS: Gabapentin 100 MG Cap PO SCH ×2 (12:52→15:28)
[2018-05-12] MEDS: Acetaminophen 325 MG Tab PO PRN (12:59)
--- NOTE | 2018-05-12 14:06 | NM ---
Cardiolite cardiac study with Lexiscan Technique: I have data stating the patient was stressed utilizing Lexiscan protocol. Stress dose of technetium 99m Cardiolite was 10.8 mCi. Rest dose not given at time of dictation. SPECT imaging was obtained in 3 planes for both portions of the study. Study was also gated. Low dose chest CT performed to allow for attenuation correction. Findings: Diffuse but mild diminished activity is noted on the stress study. This shows better activity on the rest exam. I believe this is most likely artifact. I do not see any definite reversible or fixed change. Ejection fraction is above 70%. Wall thickening is normal. Impression: 1. Mild diffuse diminished activity on the stress study which is most likely artifact. No definite reversible ischemia is suspected. Diagnostic code #2
== END 2018-05-12 15:15 | disposition home or self-care (01) ==
LOC: JD.ED 06:09 → JD.ICU 06:38
PROVIDERS: ADMIT Internal Medicine; ATTEND Internal Medicine
DX: I48.0 Paroxysmal atrial fibrillation (principal); I10 Essential (primary) hypertension; E87.6 Hypokalemia; E78.5 Hyperlipidemia, unspecified; G62.9 Polyneuropathy, unspecified; K58.9 Irritable bowel syndrome, unspecified; N32.81 Overactive bladder; Z79.899 Other long term (current) drug therapy; Z95.5 Presence of coronary angioplasty implant and graft; Z88.0 Allergy status to penicillin; Z88.1 Allergy status to other antibiotic agents; Z88.2 Allergy status to sulfonamides; Z88.5 Allergy status to narcotic agent; Z88.6 Allergy status to analgesic agent; Z88.8 Allergy status to other drugs, medicaments and biological substances; Z91.048 Other nonmedicinal substance allergy status
CPT/HCPCS: 36415; 71045; 78452; 80048; 80053; 80061; 82553; 83735; 83880; 84439; 84443; 84484; 85025; 85610; 93005; 93017; 93306; 99285; A9270; A9500; J0360; J2785; J3490; J7030; J7040; 93010